=== PATIENT | female | born 1975 | race Caucasian/White ===

== ENCOUNTER 2017-04-02 05:44 | Emergency (ER) | payer OTHER ==
[2017-04-02] MEDS ORDERED: NACL 0.9% 1000 ML 1,000 ML IV ONE (08:55)
[2017-04-02] MEDS ORDERED: MORPHINE IV ONE ×2 (08:56→10:45)
[2017-04-02] MEDS ORDERED: ZOFRAN IV ONE (08:56)
--- NOTE | 2017-04-02 08:56 | Emergency Department Report ---
ED Back Pain/Injury HPI - General Chief Complaint: Back Pain/Injury Stated Complaint: BACK PAIN Time Seen by Provider: 04/02/17 08:26 Source: patient Limitations: Physical Limitation - History of Present Illness Initial Comments: 41-year-old female past medical history diabetes, hypothyroid, history of hysterectomy presents with complaint of left-sided flank pain since yesterday. Patient also complains of slightly increased urinary frequency, dysuria and cloudiness. Subjective fever. Patient denies any nausea or vomiting no chest pain no palpitations no shortness of breath. Company by . The pain is intermittently sharp, denies spastic component. Denies any rash, denies any trauma. MD Complaint: back pain Onset/Timin -: days(s) Similar Symptoms Previously: No Place: home Radiation: none Severity: moderate Severity scale (0 -10): 6 Quality: sharp Consistency: intermittent Improves With: none Worsens With: none Associated Symptoms: denies other symptoms. denies: numbness, difficulty urinating, incontinence, fever/chills - Related Data Previous Rx's Medication Instructions Recorded Last Taken Type Acetaminophen/Codeine [Tylenol 1 tab PO Q6H PRN #14 tab 04/02/17 Unknown Rx /Codeine # 3 tab] Levofloxacin [Levaquin TAB] 750 mg PO QDAY #5 tablet 04/02/17 Unknown Rx Naproxen [Naprosyn TAB] 375 mg PO BID PRN #20 tablet 04/02/17 Unknown Rx Allergies Allergy/AdvReac Type Severity Reaction Status Date / Time iodine AdvReac Severe Itching Verified 04/02/17 06:01 ED Review of Systems ROS: Stated complaint: BACK PAIN Other details as noted in HPI Constitutional: denies: chills, fever Eyes: denies: eye pain, eye discharge, vision change ENT: denies: ear pain, throat pain Respiratory: denies: cough, shortness of breath, wheezing Cardiovascular: denies: chest pain, palpitations Endocrine: no symptoms reported Gastrointestinal: denies: abdominal pain, nausea, diarrhea Genitourinary: dysuria, frequency. denies: urgency, discharge Musculoskeletal: denies: back pain, joint swelling, arthralgia Skin: denies: rash, lesions Neurological: denies: headache, weakness, paresthesias Psychiatric: denies: anxiety, depression Hematological/Lymphatic: denies: easy bleeding, easy bruising ED Past Medical Hx - Past Medical History Previous Medical History?: Yes Hx Diabetes: Yes Additional medical history: tyhroid - Surgical History Past Surgical History?: No - Medications Home Medications: Home Medications Medication Instructions Recorded Confirmed Last Taken Type Acetaminophen/Codeine [Tylenol 1 tab PO Q6H PRN #14 tab 04/02/17 Unknown Rx /Codeine # 3 tab] Levofloxacin [Levaquin TAB] 750 mg PO QDAY #5 tablet 04/02/17 Unknown Rx Naproxen [Naprosyn TAB] 375 mg PO BID PRN #20 tablet 04/02/17 Unknown Rx ED Physical Exam - General Limitations: Physical Limitation General appearance: alert, in no apparent distress - Head Head exam: Present: atraumatic, normocephalic - Eye Eye exam: Present: normal appearance, PERRL, EOMI - ENT ENT exam: Present: mucous membranes moist - Neck Neck exam: Present: normal inspection - Respiratory Respiratory exam: Present: normal lung sounds bilaterally. Absent: respiratory distress - Cardiovascular Cardiovascular Exam: Present: regular rate, normal rhythm. Absent: systolic murmur, diastolic murmur, rubs, gallop - GI/Abdominal GI/Abdominal exam: Present: soft, normal bowel sounds - Extremities Exam Extremities exam: Present: normal inspection - Back Exam Back exam: Present: normal inspection, CVA tenderness (L) (left-sided CVA tenderness) - Neurological Exam Neurological exam: Present: alert, oriented X3 - Psychiatric Psychiatric exam: Present: normal affect, normal mood - Skin Skin exam: Present: warm, dry, intact, normal color. Absent: rash ED Course Vital Signs 04/02/17 04/02/17 05:53 11:28 Temperature 98.3 F 98.0 F Pulse Rate 96 H 73 Respiratory 20 18 Rate Blood Pressure 187/114 Blood Pressure 143/85 [Left] O2 Sat by Pulse 95 96 Oximetry ED Medical Decision Making - Lab Data Result diagrams: 04/02/17 09:06 04/02/17 09:06 - Medical Decision Making A/P: Clinical pyelonephritis, flank pain 1-as patient has positive urine nitrates with left-sided flank pain will treat empirically for pyelonephritis, patient received 1 g of ceftriaxone in the ED. 5 day course of levofloxacin 2-patient is able to void urine without significant difficulty 3-short course of naproxen and Tylenol No. 3 when necessary 4-CT shows some spurs lymphadenopathy, no hydronephrosis, no obstructing stone, CT suggested atelectasis, chest x-ray unremarkable 5- patient advised to return to the ED for any persistent nausea vomiting, fevers and chills, worsening abdominal pain/flank pain, chest pain 6- case d/w Dr. Castillo before discharge Critical care attestation.: If time is entered above; I have spent that time in minutes in the direct care of this critically ill patient, excluding procedure time. ED Disposition Clinical Impression: Flank pain Disposition: TO HOME OR SELFCARE Is pt being admited?: No Does the pt Need Aspirin: No Condition: Stable Instructions: Urinary Tract Infection in Women (ED), Acute Pyelonephritis (ED) , Flank Pain (ED) Prescriptions: Acetaminophen/Codeine [Tylenol /Codeine # 3 tab] 1 tab PO Q6H PRN #14 tab PRN Reason: Pain Levofloxacin [Levaquin TAB] 750 mg PO QDAY #5 tablet Naproxen [Naprosyn TAB] 375 mg PO BID PRN #20 tablet PRN Reason: Pain Referrals: MICHAEL SALCEDO MD [Referring] - 3-5 Days Forms: Accompanied Note, Work/School Release Form(ED) Time of Disposition: 11:11
[2017-04-02 09:21] LABS: Bacteria,Urine 1+ /HPF (Negative); Bilirubin,Urine NEG (Negative); Blood,Urine NEG (Negative); Ketones,Urine NEG (Negative); Leukocyte Esterase,Urine MOD (Negative); Mucus,Urine FEW /HPF; Nitrite,Urine POS (Negative); Protein,Urine <15 mg/dL mg/dL (Negative)
[2017-04-02 09:33] LABS: Basophils % (Auto) 0.5 % (0.0-1.8); Eosinophils % (Auto) 0.7 % (0.0-4.3); Hematocrit 38.1 % (30.3-42.9); Hemoglobin 12.6 gm/dl (10.1-14.3); Mean Corpuscular HGB Conc 33 % (30-34); Mean Corpuscular Hemoglobin 29 pg (28-32); Mean Corpuscular Volume 87 fl (79-97); Platelet Count 401 K/mm3 (140-440); Red Blood Count 4.37 M/mm3 (3.65-5.03); Red Cell Distribution Width 13.3 % (13.2-15.2); White Blood Count 8.2 K/mm3 (4.5-11.0)
[2017-04-02] MEDS ORDERED: ROCEPHIN/NS 1 GM/50 ML 1 GM/50 ML BAG IV ONE (09:35)
[2017-04-02 09:47] LABS: Anion Gap 20 mmol/L; BUN/Creatinine Ratio 14.44; Blood Urea Nitrogen 13 mg/dL (7-17); Calcium 8.7 mg/dL (8.4-10.2); Carbon Dioxide 19 mmol/L (22-30); Chloride 101.7 mmol/L (98-107); Creatine Kinase 127 units/L (30-135); Glucose 153 mg/dL (65-100); Potassium 4.3 mmol/L (3.6-5.0); Sodium 136 mmol/L (137-145)
--- NOTE | 2017-04-02 10:30 | Cat Scan Report ---
CT ABDOMEN AND PELVIS WITHOUT CONTRAST INDICATION: Left flank pain. Evaluate for kidney stone. COMPARISON: None similar at this institution. FINDINGS: Noncontrast abdomen and pelvis CT performed. LUNG BASES: Slight right lung base scarring or atelectasis posteriorly. Nonspecific distal esophageal wall prominence/thickening, not excluded for gastroesophageal reflux and/or hiatal hernia, amongst others. ABDOMEN: Please note that sensitivity to detect small visceral lesions is limited due to the absence of intravenous or oral contrast. However, grossly unremarkable unenhanced liver, spleen, gallbladder, pancreas, adrenals, non-aneurysmal abdominal aorta and the IVC. Right hepatic lobe approximately 19.5 cm in midclavicular length. Approximately 1.2 cm fat slightly insinuates the pancreatic neck, axial image 147, series 2. Another 0.6 cm fatty focus in the pancreatic head also noted, axial image 162. No ascites or size significant adenopathy. Few small, subcentimeter, scattered mesenteric and retroperitoneal lymph nodes noted. Nonopacified GI tract evaluation limited, though grossly nonobstructive. Normal appendix. Specifically, the kidneys are unremarkable bilaterally without hydronephrosis or radiopaque renal calculi. PELVIS: Uterus surgically absent. Few small pelvic phleboliths. Grossly unremarkable unenhanced urinary bladder, adnexa/ovaries and the rectosigmoid. No free fluid or significant adenopathy. Mild spinal degenerative spurring. CONCLUSION: No acute CT abnormality with few incidental findings, as above. Thank you for the opportunity to participate in this patient's care.
--- NOTE | 2017-04-02 11:01 | XRay Report ---
CHEST 2 VIEWS INDICATION: Right lung atelectasis. COMPARISON: None similar. FINDINGS: PA and lateral chest radiographs demonstrate normal cardiomediastinal silhouette. Clear lungs. Intact bones. CONCLUSION: No acute disease in the chest. Thank you for the opportunity to participate in this patient's care.
[2017-04-02 11:29] VITALS: BP 143/85
== END 2017-04-02 11:41 | disposition home or self-care (01) ==
LOC: ED 05:44
DX: R10.9 Unspecified abdominal pain (principal); R35.0 Frequency of micturition; R30.0 Dysuria; E11.9 Type 2 diabetes mellitus without complications; Z88.8 Allergy status to other drugs, medicaments and biological substances
CPT/HCPCS: 36415; 71020; 74176; 80048; 81001; 81025; 82550; 85025; 87076; 87086; 87186; 96361; 96365; 96375; 96376; 99284; J0696; J2270; J2405; J7030

== ENCOUNTER 2017-07-30 18:27 | Emergency (ER) | payer OTHER ==
[2017-07-30 18:44] VITALS: BP 168/101
[2017-07-30 19:06] LABS: Basophils % (Auto) 1.4 % (0.0-1.8); Eosinophils % (Auto) 1.8 % (0.0-4.3); Hematocrit 38.6 % (30.3-42.9); Hemoglobin 12.8 gm/dl (10.1-14.3); Mean Corpuscular HGB Conc 33 % (30-34); Mean Corpuscular Hemoglobin 29 pg (28-32); Mean Corpuscular Volume 86 fl (79-97); Platelet Count 409 K/mm3 (140-440); Red Blood Count 4.48 M/mm3 (3.65-5.03); Red Cell Distribution Width 13.3 % (13.2-15.2); White Blood Count 7.6 K/mm3 (4.5-11.0)
[2017-07-30 19:26] LABS: Anion Gap 20 mmol/L; BUN/Creatinine Ratio 11; Blood Urea Nitrogen 9 mg/dL (7-17); Calcium 9.3 mg/dL (8.4-10.2); Carbon Dioxide 24 mmol/L (22-30); Chloride 95.5 mmol/L (98-107); Glucose 188 mg/dL (65-100); Potassium 4.1 mmol/L (3.6-5.0); Sodium 135 mmol/L (137-145)
== END 2017-07-30 20:12 | disposition left against medical advice (07) ==
LOC: ED 18:27
DX: R07.9 Chest pain, unspecified (principal); R06.09 Other forms of dyspnea; Z53.21 Procedure and treatment not carried out due to patient leaving prior to being seen by health care provider
CPT/HCPCS: 36415; 80048; 84484; 85025; 93005; 93010

== ENCOUNTER 2022-01-12 08:35 | Emergency (ER) | payer OTHER ==
[2022-01-12 09:21] LABS: HCG Qualitative,Urine Negative (Negative)
[2022-01-12 09:30] LABS: Bilirubin,Urine NEG (Negative); Blood,Urine NEG (Negative); Color,Urine Straw (Yellow); Hyaline Casts,Urine 1 /LPF; Mucus,Urine FEW /HPF; Protein,Urine <15 mg/dL mg/dL (Negative); RBC,Urine < 1.0 /HPF (0.0-6.0); Urobilinogen,Urine < 2.0 mg/dL (<2.0); WBC,Urine < 1.0 /HPF (0.0-6.0)
[2022-01-12] MEDS ORDERED: SODIUM CHLORIDE 0.9% 1000 ML 1,000 ML IV ONE (12:28)
[2022-01-12] MEDS ORDERED: MORPHINE 4 MG/1 ML INJ IV STA (12:28)
[2022-01-12] MEDS ORDERED: ONDANSETRON 4 MG/2 ML INJ IV STA (12:28)
[2022-01-12 13:08] LABS: Basophils # (Auto) 0.1 K/mm3 (0.0-0.1); Eosinophils # (Auto) 0.1 K/mm3 (0.0-0.4); Eosinophils % (Auto) 1.3 % (0.0-4.3); Hematocrit 38.5 % (30.3-42.9); Hemoglobin 12.8 gm/dl (10.1-14.3); Lymphocytes # (Auto) 2.7 K/mm3 (1.2-5.4); Lymphocytes % (Auto) 39.8 % (13.4-35.0); Mean Corpuscular HGB Conc 33 % (30-34); Mean Corpuscular Volume 87 fl (79-97); Monocytes # (Auto) 0.5 K/mm3 (0.0-0.8); Monocytes % (Auto) 6.6 % (0.0-7.3); Platelet Count 415 K/mm3 (140-440); Red Blood Count 4.44 M/mm3 (3.65-5.03); Red Cell Distribution Width 13.6 % (13.2-15.2)
[2022-01-12 13:33] LABS: Alanine Aminotransferase 23 units/L (7-56); Albumin 4.2 g/dL (3.9-5); BUN/Creatinine Ratio 13; Blood Urea Nitrogen 14 mg/dL (7-17); Calcium 9.5 mg/dL (8.4-10.2); Hemolysis Index 25
--- NOTE | 2022-01-12 13:34 | Cat Scan Report ---
CT ABDOMEN AND PELVIS WITHOUT CONTRAST HISTORY: right aflank pain. COMPARISON: 04/02/2017 TECHNIQUE: CT images of the abdomen and pelvis were obtained without administration of intravenous co ntrast. All CT scans at this location are performed using CT dose reduction for ALARA by means of au tomated exposure control. FINDINGS: Lungs/bones: Tiny 2 mm nodule left lower lung Abdomen/pelvis: Within limits of noncontrast exam the spleen, adrenal glands, pancreas, gallbladder, upper GI tract appear normal. Adrenal glands and kidneys appear normal. No renal or ureteral stones are identified. Fatty infiltration the liver is noted. Postsurgical changes in the sacrum. IMPRESSION: 1. Fatty infiltration liver 2. Tiny 2 mm nodule in the left lower lung of uncertain clinical significance. See recommendations be low 3. No renal or ureteral stones are seen. INCIDENTAL PULMONARY NODULE RECOMMENDATION RECOMMENDATION: Solid Nodule size <6 mm -- Single or Multiple - Low Risk Patient: No routine follow-up - High Risk Patient: Optional CT at 12 months Note These recommendations do not apply to lung cancer screening, patients with immunosuppression, o r patients with known primary cancer. Note Newly detected indeterminate nodule in persons 35 years of age or older. Persons under the age of 35 should not receive follow-up unless there is a known primary cancer. Note Perifissural Nodule is a fissure-attached/subpleural, homogeneous, solid nodule that has smooth margins and an oval, lentiform, or triangular shape. They represent about 20% of nodules detected in lung cancer screening, are invariably benign, and do not require follow-up. Nodules 10 mm or larger (or those with suspicious features) will continue to be managed based on the size criteria. Low Risk Patient = minimal or absent history of smoking and of other known risk factors. High Risk Patient = history of smoking or of other known risk factors. Nodule dimensions are average of long and short axes, rounded to the nearest millimeter. Based on 2017 Fleischner Society Guidelines found in Radiology 2017 284:228-243. https://doi.[email or web address] https://www.ncbi.nlm.nih.gov/pmc/articles/DDD3473308/ Signer Name: Del Cabrales MD Signed: 01/12/2022 1:30 PM Workstation Name: [id number]
--- NOTE | 2022-01-12 16:07 | Emergency Department Report ---
ED Abdominal Pain HPI - General Chief Complaint: Abdominal Pain Stated Complaint: POSSIBLE KIDNEY STONE/NAUSEA Time Seen by Provider: 01/12/22 11:26 Source: patient Mode of arrival: Ambulatory Limitations: No Limitations - History of Present Illness Severity scale (0 -10): 9 - Related Data Previous Rx's Medication Instructions Recorded Last Taken Type Acetaminophen/Codeine [Tylenol 1 tab PO Q6H PRN #14 tab 04/02/17 Unknown Rx /Codeine # 3 tab] Naproxen [Naprosyn TAB] 375 mg PO BID PRN #20 tablet 04/02/17 Unknown Rx levoFLOXacin [Levaquin TAB] 750 mg PO QDAY #5 tablet 04/02/17 Unknown Rx Butalb/Acetaminophen/Caffeine 1 cap PO Q6HR PRN #20 cap 05/24/20 Unknown Rx [Fioricet 50-300-40 mg CAP] Metoclopramide [Reglan] 10 mg PO TID #14 tab 05/24/20 Unknown Rx Ketorolac [Toradol] 10 mg PO Q6H PRN #14 01/12/22 Unknown Rx Allergies Allergy/AdvReac Type Severity Reaction Status Date / Time latex Allergy Itching Verified 07/30/17 18:39 iodine AdvReac Severe Itching Verified 04/02/17 06:01 ED Review of Systems ROS: Stated complaint: POSSIBLE KIDNEY STONE/NAUSEA Other details as noted in HPI Comment: All other systems reviewed and negative ED Past Medical Hx - Past Medical History Previous Medical History?: Yes Hx Hypertension: Yes Hx Diabetes: Yes Hx Headaches / Migraines: Yes Additional medical history: Hypothyroidism - Surgical History Past Surgical History?: Yes Additional Surgical History: Hysterectomy - Social History Smoking Status: Never Smoker Substance Use Type: None - Medications Home Medications: Home Medications Medication Instructions Recorded Confirmed Last Taken Type Acetaminophen/Codeine [Tylenol 1 tab PO Q6H PRN #14 tab 04/02/17 Unknown Rx /Codeine # 3 tab] Naproxen [Naprosyn TAB] 375 mg PO BID PRN #20 tablet 04/02/17 Unknown Rx levoFLOXacin [Levaquin TAB] 750 mg PO QDAY #5 tablet 04/02/17 Unknown Rx Butalb/Acetaminophen/Caffeine 1 cap PO Q6HR PRN #20 cap 05/24/20 Unknown Rx [Fioricet 50-300-40 mg CAP] Metoclopramide [Reglan] 10 mg PO TID #14 tab 05/24/20 Unknown Rx Ketorolac [Toradol] 10 mg PO Q6H PRN #14 01/12/22 Unknown Rx ED Physical Exam - General Limitations: No Limitations General appearance: alert, in no apparent distress - Head Head exam: Present: atraumatic, normocephalic - Eye Eye exam: Present: normal appearance, PERRL, EOMI Pupils: Present: normal accommodation - ENT ENT exam: Present: normal exam, normal orophraynx, mucous membranes moist, TM's normal bilaterally - Neck Neck exam: Present: normal inspection, full ROM, lymphadenopathy - Respiratory Respiratory exam: Present: normal lung sounds bilaterally. Absent: respiratory distress, chest wall tenderness, decreased breath sounds - Cardiovascular Cardiovascular Exam: Present: regular rate, normal rhythm. Absent: bradycardia, tachycardia, systolic murmur, diastolic murmur, rubs, gallop - GI/Abdominal GI/Abdominal exam: Present: soft, normal bowel sounds. Absent: tenderness, guarding, hypoactive bowel sounds, organomegaly, mass, pulsatile mass - Extremities Exam Extremities exam: Present: normal inspection, normal capillary refill - Back Exam Back exam: Present: normal inspection. Absent: CVA tenderness (R), CVA tenderness (L), muscle spasm - Neurological Exam Neurological exam: Present: alert, oriented X3, CN II-XII intact - Psychiatric Psychiatric exam: Present: normal affect, normal mood - Skin Skin exam: Present: warm, dry, intact, normal color. Absent: rash ED Course Vital Signs 01/12/22 01/12/22 08:48 11:49 Temperature 98.5 F 97.7 F Pulse Rate 76 82 Respiratory 18 18 Rate Blood Pressure 153/91 Blood Pressure 164/92 [Left] O2 Sat by Pulse 98 98 Oximetry ED Medical Decision Making - Lab Data Result diagrams: 01/12/22 12:34 01/12/22 12:34 Critical care attestation.: If time is entered above; I have spent that time in minutes in the direct care of this critically ill patient, excluding procedure time. ED Disposition Clinical Impression: Pulmonary nodule, Abdominal pain Disposition: HOME / SELF CARE / HOMELESS Is pt being admited?: No Does the pt Need Aspirin: No Condition: Stable Instructions: Abdominal Pain (ED), Flank Pain, Adult, Pulmonary Nodule Additional Instructions: This CT scan showed evidence of a pulmonary nodule but it was needs to be a follow-up in the very near future with her primary care provider or project technician. Please see the attached documentation. You have been evaluated emergency department today for abdominal pain. Your evaluation did not show evidence of any medical conditions requiring emergent intervention at this time. Your lipase was it was elevated but not to a significant degree significant pancreatitis does not appear to be present at this time please drink plenty of fluids. Please schedule an appointment with your primary care physician. Return to emergency department if you experience worsening uncontrolled pain, fevers of 100.4 or greater, recurrent vomiting, inability to tolerate food or fluids by mouth, bloody stools or vomit, black tarry stools, or any other concerning symptoms. Prescriptions: Ketorolac [Toradol] 10 mg PO Q6H PRN #14 PRN Reason: Pain Referrals: ANNABEL REDMAN MD [Primary Care Provider] - 3-5 Days [facility] [Provider Group] - 3-5 Days JULIUS ESPINOZA MD [Staff Physician] - 3-5 Days ROSSY FELDMAN MD [Staff Physician] - 3-5 Days ([facility]) LISA FRIEND MD [Referring] - 3-5 Days ([facility]) EUSEBIO EWING MD [Referring] - 3-5 Days ([facility])
[2022-01-12] MEDS ORDERED: KETOROLAC 30 MG/1 ML INJ IV ONE (16:21)
[2022-01-12 17:38] VITALS: BP 158/78
== END 2022-01-12 17:36 | disposition home or self-care (01) ==
LOC: ED 08:35
DX: R91.1 Solitary pulmonary nodule (principal); R10.9 Unspecified abdominal pain; I10 Essential (primary) hypertension; E11.9 Type 2 diabetes mellitus without complications
CPT/HCPCS: 36415; 74176; 80053; 81001; 81025; 83690; 85025; 96361; 96374; 96375; 99284; J1885; J2270; J2405; J7030